=== PATIENT | female | born 1965 | race Caucasian/White ===

== ENCOUNTER 2016-11-17 09:37 | Emergency (ER) | payer OTHER ==
[~2016-11-17] VITALS: Ht 162.6 cm; Wt 108.9 kg
[~2016-11-17 09:37] MED LIST: AMOXICILLIN 50500 MG PO; AZO STANDARD97.5 MG PO; BACTRIM DS 8001 TA1 PO; BACTRIM DS 8001 TAB PO; BENZONATATE100 MG PO; CIPRO 500MG TA500 MG PO; CYCLOBENZAPRINE10 MG PO; Ciprofloxacin250 MG OR; FIORICET 325 MG1 TAB; FLEXERIL10 MG PO; IBUPROFEN200 MG PO; IBUPROFEN400 MG OR; IBUPROFEN800 MG PO; LEVOTHYROXIN0.112 M1 PO; LORTAB 500 MG-71 TAB PO; MEDROL 4MG. DOSE4 MG PO; MUSCLE RELAXER OR; NORCO 325 MG-51 TAB PO; PHENAZOPYRIDIN100 M1 PO; PHENERGAN 25MG.25 M1 PO; PHENERGAN25 M3 PO; PRAVACHOL40 MG PO; PREDNISONE 5MG.5 MG PO; PROMETHAZINE D118 ML PO; PROVENTIL0.09 MG/A1 IH; PYRIDIUM 200MG200 MG PO; ROBAXIN500 M1 PO; SEPTRA DS 800 M1 TAB PO; SULFAMETHOXAZOL1 TA6 PO; SYNTHROID0.112 MG PO; SYNTHROID0.137 MG PO; TRAMADOL 50MG T1 PAK PO; TRAMADOL 50MG T50 MG PO; VITAMIN D1000 IU PO
[2016-11-17] MEDS ORDERED: FLONASE 50 MCG16 GM (10:06)
[2016-11-17] MEDS ORDERED: PENICILLIN VK500 M1 PO (10:06)
--- NOTE | 2016-11-17 10:06 | Urgent Treatment Center Report ---
History of Present Issue Date/Time Seen by Provider 11/17/16 0974 Visit Reason Pt arrived:Walked Presenting Problem:SINUS PRESSURE, MIGRAINES, JAW SWOLLEN ON RIGHT SIDE AND EAR PAIN Location if Accident: Onset of symptoms date/time:/ or onset unknown for:MEDICAL HX UNKNOWN Have you (or family members/close friends) recently traveled outside the [place]? N If Yes, where/when: Have you had exposure to infectious disease within the past month? TB? Other? Specify: Patient states that she has been having sinus pain and pressure and also having some dental pain. States that she noticed that her right jaw area was swelling and thinks she may have an abcessed tooth States that she is having pain in her right ear too Statse that she thinks most is coming from her tooth ALLERGIES Coded Allergies: naproxen (Mild, "HEART BEATING TOO FAST" 01/31/16) Home Medications Active Scripts Methocarbamol (Robaxin) 500 MG PO BID #60 TAB Prov: 04/02/16 Cyclobenzaprine Hcl (Flexeril) 5 MG PO BID #6 TAB Prov: 07/11/16 Methylprednisolone (Medrol Dose [place]) 4 MG PO UD #1 STERLING Prov: 07/11/16 ALBUTEROL (Proventil Hfa Inhaler) 1-2 PUFF IH Q4-6H PRN PRN SOA, excessive cough , wheezing #1 CAN Prov: 08/22/16 Methylprednisolone (Medrol Dose [place]) 4 MG PO UD #1 STERLING Prov: 08/22/16 PROMETHAZINE/DEXTROMETHORPHAN (Promethazine-Dm Syrup) 10 ML PO QHSP PRN cough #70 ML Prov: 08/22/16 Reported Medications CHOLECALCIFEROL (VITAMIN D3) (Vitamin D3) 2,000 IUNITS PO DAILY Levothyroxine Sodium (Levothyroxine 0.112MG) 0.112 MG PO DAILY #90 Pravastatin Sodium (Pravachol) 40 MG PO QHS #30 History Medical History General CAD? No Angina: No [place]: No Hypertension? No Hyperlipidemia? Yes CHF? No DVT? No PE? No COPD? No Asthma? No Anemia? No GERD? No Gastric ulcers? No GI Bleed? No Hernia? No Thyroid Problems? Yes Hypothyroidism? Yes CVA? No Seizures? No Diabetes? No Renal Insuffiency? No UTI? Yes Stones? No BPH? No GB Disease: Yes Nephritic Syndrome? No Asplenia? No Hepatitis? No Sickle Cell Disease? No Arthritis? No Migraines? No Cataracts? No Glaucoma? No MRSA? No HIV? No TB? No Anxiety? No Depression? No Cancer? Yes Site: CERVICAL More? No Immunization HX DT/Tetanus 1-4 Years Ago Flu NEVER HAD Pneumonia Never Had Surgical Hx Previous Surgery?Y [place] Tubal Ligation WRIST RIGHT Hysterect APPENDECTOMY LEFT SHOULDER X 2 ORAL SURGERY KNEE (RIGHT) MENISCUS LEFT KNEE 02/08 Family History Family HX Diabetes Yes CAD Yes Hypertension Yes Hyperlipidemia No Cancer No TB No Social History Smoking Hx Smoker: Never Smoker Tobacco: No Packs/day N/A Alcohol Alcohol: No Review of Systems All Other Systems Reviewed and Negative ENT ear pain, nose congestion, dental caries. Physical Exam Vital Signs Vital Signs Date Time Temp Pulse Resp B/P Pulse O2 O2 Flow FiO2 Ox Delivery Rate 11/17 0945 97.9 73 16 140/65 98 General Appearance Patient appears uncomfortable, right side of jaw swollen Ear, Nose, Throat dental caries, sinus pain/drainage, multiple dental caries, swelling noted on right lower back tooth broken gum swollen appears abcessed Respiratory Status Yes: trachea midline, chest symmetrical, non tender chest. No: respiratory distress. 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 No Departure Departure Time of Disposition 0959 Disposition DC Home or Self Care(routine) Clinical Impression Primary Impression: Dental abscess Condition STABLE Referrals Ken Patino MD (Family) Patient Instructions DI for Tooth Decay, Tooth Abscess Additional Instructions Follow up with Dentist as advised Take medication as prescribed REturn if needed Over the counter Motrin or Tylenol as needed for fever or pain Warm compress to jaw area may help with pain Discharge Counseling Counseled pt/family regarding diagnosis, medications/RX, home care, follow up needs Prescriptions Current Visit Scripts Fluticasone Propionate (Flonase 50 Mcg Nasal [place]) 2 SPRAY NA DAILY #1 BOT Penicillin V Potassium 500 MG PO TID #21 TAB at 1006
[2016-11-17 10:07] VITALS: BP 140/65
== END 2016-11-17 10:08 | disposition home or self-care (01) ==
LOC: UTC 09:37
DX: K04.7 Periapical abscess without sinus (principal); K02.9 Dental caries, unspecified; Z79.899 Other long term (current) drug therapy

== ENCOUNTER 2016-12-14 10:23 | Emergency (ER) | payer OTHER ==
[~2016-12-14] VITALS: Ht 162.6 cm; Wt 108.9 kg
[~2016-12-14 10:23] MED LIST changes: +FLONASE 50 MCG16 GM; +PENICILLIN VK500 M1 PO
[2016-12-14] MEDS ORDERED: SYNTHROID0.025 MG PO (10:34)
[2016-12-14] MEDS ORDERED: VITAMIN D31000 IU PO (10:35)
--- NOTE | 2016-12-14 10:43 | Urgent Treatment Center Report ---
History of Present Issue Date/Time Seen by Provider 12/14/16 1036 Visit Reason Pt arrived:Walked Presenting Problem:PT C/O A MIGRANE THAT STARTED THIS MORNING Location if Accident: Onset of symptoms date/time:/ or onset unknown for:MEDICAL HX UNKNOWN Have you (or family members/close friends) recently traveled outside the [place]? N If Yes, where/when: Have you had exposure to infectious disease within the past month? TB? Other? Specify: Patient states that she has a history of migraine headaches State that about 3 am this morning she began having a migraine headache. She took Motrin trying to stop the migraine before it began but was unsuccessful State that migraine has continued to get worse State that it feels like there is a vice on her head, Describes it as feeling common to the other migraines she has had in the past states that her eyes are sensative to light and she is having some nausea. ALLERGIES Coded Allergies: naproxen (Mild, "HEART BEATING TOO FAST" 01/31/16) Home Medications Active Scripts Fluticasone Propionate (Flonase 50 Mcg Nasal [place]) 2 SPRAY NA DAILY #1 BOT Prov: 11/17/16 Methocarbamol (Robaxin) 500 MG PO BID #60 TAB Prov: 04/02/16 Cyclobenzaprine Hcl (Flexeril) 5 MG PO BID #6 TAB Prov: 07/11/16 Methylprednisolone (Medrol Dose [place]) 4 MG PO UD #1 REYNALDO Prov: 07/11/16 ALBUTEROL (Proventil Hfa Inhaler) 1-2 PUFF IH Q4-6H PRN PRN SOA, excessive cough , wheezing #1 CAN Prov: 08/22/16 Methylprednisolone (Medrol Dose [place]) 4 MG PO UD #1 REYNALDO Prov: 08/22/16 PROMETHAZINE/DEXTROMETHORPHAN (Promethazine-Dm Syrup) 10 ML PO QHSP PRN cough #70 ML Prov: 08/22/16 Reported Medications CHOLECALCIFEROL (VITAMIN D3) (Vitamin D3) 2,000 IUNITS PO DAILY Levothyroxine Sodium (Levothyroxine 0.112MG) 0.112 MG PO DAILY #90 Pravastatin Sodium (Pravachol) 40 MG PO QHS #30 Levothyroxine Sodium (Synthroid 0.025MG) 0.025 MG PO DAILY CHOLECALCIFEROL (VITAMIN D3) (Vitamin D) 1,000 IUNITS PO DAILY History Medical History General CAD? No Angina: No [place]: No Hypertension? No Hyperlipidemia? Yes CHF? No DVT? No PE? No COPD? No Asthma? No Anemia? No GERD? No Gastric ulcers? No GI Bleed? No Hernia? No Thyroid Problems? Yes Hypothyroidism? Yes CVA? No Seizures? No Diabetes? No Renal Insuffiency? No UTI? Yes Stones? No BPH? No GB Disease: Yes Nephritic Syndrome? No Asplenia? No Hepatitis? No Sickle Cell Disease? No Arthritis? No Migraines? No Cataracts? No Glaucoma? No MRSA? No HIV? No TB? No Anxiety? No Depression? No Cancer? Yes Site: CERVICAL More? No Immunization HX DT/Tetanus 1-4 Years Ago Flu NEVER HAD Pneumonia Never Had Surgical Hx Previous Surgery?Y [place] Tubal Ligation WRIST RIGHT Hysterect APPENDECTOMY LEFT SHOULDER X 2 ORAL SURGERY KNEE (RIGHT) MENISCUS LEFT KNEE 02/08 Family History Family HX Diabetes Yes CAD Yes Hypertension Yes Hyperlipidemia No Cancer No TB No Social History Smoking Hx Smoker: Never Smoker Tobacco: No Packs/day N/A Alcohol Alcohol: No Review of Systems All Other Systems Reviewed and Negative Eyes photophobia, denies blindness, denies blurred vision, denies vision change Psychiatric/Neurological headache, denies seizure, denies weakness Physical Exam Vital Signs Vital Signs Date Time Temp Pulse Resp B/P Pulse O2 O2 Flow FiO2 Ox Delivery Rate 12/14 1044 18 12/14 1032 98.3 64 20 138/65 99 General Appearance normal appearance, WD/WN, no apparent distress Respiratory Status Yes: trachea midline, chest symmetrical, non tender chest. No: respiratory distress. 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 No Results/Orders Current Medication Orders Sig/Esvin Start time Last Medication Dose Route Stop Time Status Admin Diphenhydramine HCl 25 MG ONCE ONE 12/14 1045 DC 12/14 IM 12/14 1046 1043 Ketorolac 60 MG ONCE ONE 12/14 1045 DCr 09/21 Tromethamine IM 12/14 1046 1044 Metoclopramide HCl 10 MG ONCE ONE 12/14 1045 DC 12/14 IM 12/14 1046 1047 Metoclopramide HCl 0 .STK-MED ONE 12/14 1033 DC .ROUTE Diphenhydramine HCl 0 .STK-MED ONE 12/14 1031 DC .ROUTE Ketorolac 0 .STK-MED ONE 12/14 1031 DCr Tromethamine .ROUTE Progress [facility] Progress Notes 1 Comment Patient states that Naproxen makes her have heart palpatations however she has taken Toradol in the past without any reaction or complications [facility] Progress Notes 2 Comment Pateint state that medication is helping with headache, headache feels better and she is ready to go home and go to bed Departure Departure Time of Disposition 1100 Disposition DC Home or Self Care(routine) Clinical Impression Primary Impression: Migraine Qualifiers: Migraine type: without aura Status migrainosus presence: without status migrainosus Intractability: intractable Qualified Code: G43.019 - Migraine without aura, intractable, without status migrainosus Condition STABLE Referrals Ken Patino MD (Family) Patient Instructions DI for Migraine, Migraine -- Adult Additional Instructions Follow up with family doctor Return if needed Go home lay down and try to sleep and rest so maybe you will be able to sleep off the remainder of the headache If you began having any blurred vision, difficulty focusing, or headache changes and becomes worse headache of life go straight to ER Discharge Counseling Counseled pt/family regarding diagnosis, medications/RX, home care, follow up needs at 1101
[2016-12-14 11:06] VITALS: BP 138/65
== END 2016-12-14 11:07 | disposition home or self-care (01) ==
LOC: UTC 10:23
DX: G43.019 Migraine without aura, intractable, without status migrainosus (principal); Z79.899 Other long term (current) drug therapy

== ENCOUNTER → 2017-01-31 | Outpatient (CLI) | payer OTHER ==
[~2017-01-31] MED LIST changes: +AMOXICOT500 MG PO; +COMPAZINE10 M1 PO; +SYNTHROID0.025 MG PO; +VITAMIN D31000 IU PO
--- NOTE | 2017-02-01 10:02 | RADIOLOGY REPORT PS360 ---
MRI-BRAIN W/O HISTORY: Severe headache, meningioma with dizziness MIGRAINE WITHOUT AURA, MENINGIOMA ORDERING PHYSICIAN: MARCOS YARBROUGH PATIENT AGE: 51 years COMPARISON: CT scan of 01/22/2017 TECHNIQUE: Standard multiplanar multiecho sequences are performed without contrast. FINDINGS: No midline shift, mass effect, intracranial hemorrhage, or hydrocephalus is evident. The cerebellopontine angles, cerebellum, and brainstem are unremarkable. Unremarkable pituitary and optic chiasm. No evidence of cerebellar ectopia. No evidence of acute infarction or abnormal restricted diffusion. Previous CT scan showed dense dural calcifications superiorly adjacent to the falx and was felt to be slightly larger when compared to an older study of 2013. This is anterior in the subdural space in the right frontal area lying just along the falx. This area is isointense on both T1 and T2-weighted images and does not show restricted diffusion measuring 5 x 5 mm.. This could represent a small meningioma. This is difficult to discern between calcification and a meningioma without contrast enhancement. There is no mass effect. No sinus air-fluid level or mastoid effusion. IMPRESSION: 1. No acute intracranial findings. 2. 5 mm T1 and T2 isointensity in the medial aspect of the right frontal region along the falx subdural in nature and could be due to small meningioma or a dural calcification difficult to further evaluate without contrast. Consider 6 month follow-up without and with gadolinium enhancement for further evaluation. IMPRESSION:
== END ==
LOC: RAD 09:28
DX: G43.009 Migraine without aura, not intractable, without status migrainosus (principal); D32.9 Benign neoplasm of meninges, unspecified